=== PATIENT | male | born 1965 ===

== ENCOUNTER 2020-01-20 07:46 | Day surgery (SDC) | payer OTHER | END 2020-01-20 15:30 | disposition home or self-care (01) | LOC: AMB-ENDOS 07:46 | PROVIDERS: ATTEND Colon & Rectal Surgery | DX: K62.82 Dysplasia of anus (principal); D12.4 Benign neoplasm of descending colon; Z20.828 Contact with and (suspected) exposure to other viral communicable diseases; Z12.11 Encounter for screening for malignant neoplasm of colon; K64.1 Second degree hemorrhoids ==